=== PATIENT | male | born 1985 | race Caucasian/White ===

== ENCOUNTER 2019-06-28 13:33 | Outpatient (CLI) | payer MEDICARE, SELFPAY ==
[2019-06-28 13:53] LABS: Hematocrit 45.5 % (40.0-54.0); Hemoglobin 15.3 g/dL (14.0-18.0); Mean Corpuscular HGB Conc 33.6 g/dL (32.0-36.0); Mean Corpuscular Hemoglobin 29.4 pg (27.0-31.0); Mean Corpuscular Volume 87.5 fL (78.0-102.0); Mean Platelet Volume 10.4 fl (8.7-11.0); Platelet Count Result 193 K/mm3 (150-420); Red Cell Distribution Width 13.5 % (11.6-14.4); White Blood Count 10.9 K/mm3 (4.8-10.8)
[2019-06-28 14:56] LABS: Alanine Aminotransferase 41 U/L (16-63); Albumin Level 3.6 g/dL (3.4-5.0); Alkaline Phosphatase 78 U/L (46-116); Anion Gap 12.8 mmol/L (7-16); Aspartate Amino Transferase 23 U/L (15-37); Bilirubin,Total 0.3 mg/dL (0.00-1.00); Blood Urea Nitrogen 9 mg/dL (7-18); Calcium 9.2 mg/dL (8.5-10.1); Carbon Dioxide 31 mmol/L (21-32); Chloride 103 mmol/L (98-108); Estimated Glomerular Filt Rate > 60; Glucose 102 mg/dL (70-99); Osmolality Calculated 292 mOsm/kg (285-295); Potassium 4.8 mmol/L (3.5-5.1); Sodium 142 mmol/L (136-145); Total Protein 7.3 g/dL (6.4-8.2)
[2019-06-28 15:16] LABS: Thyroid Stimulating Hormone Reflex 2.83 u/IU/mL (0.36-3.74)
== END 2019-06-28 13:34 | disposition home or self-care (01) ==
LOC: CHSLAB 13:37
PROVIDERS: PCP Family Medicine; Visit Provider Family Medicine
DX: F41.1 Generalized anxiety disorder (principal); E66.3 Overweight
CPT/HCPCS: 36415; 80053; 84443; 85027

== ENCOUNTER 2020-12-31 15:21 | Outpatient (CLI) | payer MEDICARE, MEDICAID, SELFPAY ==
--- NOTE | ~2020-12-31 | XR_ITS ---
EXAMINATION: XR foot LT min 3V DATE: 12/31/2020 15:57 INDICATION: Left foot arch pain. TECHNIQUE: 4 views of left foot were obtained. COMPARISON: None. FINDINGS: Bone alignment is normal. There is an old healed fracture of distal fibula. There is chroni c heterotopic ossification distal to lateral malleolus. There are inga in medial cuneiform and cub oid. There are transverse lucent lines with sclerotic margins in the diaphyses of fourth and fifth me tatarsals with bridging bone. There is chronic deformity of many of the bones. There is cortical irre gularity of the bones at calcaneocuboid joint and talonavicular joint without significant joint space narrowing. There is heterotopic ossification at medial aspect of second proximal interphalangeal gris nt. IMPRESSION: 1. Healing transverse fractures of the diaphyses of fourth and fifth metatarsals. Reviewed, dictated and finalized at location A. AL ASSISTANT MEDICAL ASSISTANT IMPRESSION: 1. Healing transverse fractures of the diaphyses of fourth and fifth metatarsal s.
[2020-12-31 15:51] LABS: Hematocrit 46.9 % (40.0-54.0); Hemoglobin 15.4 g/dL (14.0-18.0); Mean Corpuscular HGB Conc 32.8 g/dL (32.0-36.0); Mean Corpuscular Hemoglobin 28.3 pg (27.0-31.0); Mean Corpuscular Volume 86.1 fL (78.0-102.0); Mean Platelet Volume 10.9 fl (8.7-11.0); Platelet Count Result 184 K/mm3 (150-420); Red Blood Count 5.45 M/mm3 (4.70-6.10); White Blood Count 8.9 K/mm3 (4.8-10.8)
[2020-12-31 16:53] LABS: Alanine Aminotransferase 24 U/L (16-63); Alkaline Phosphatase 79 U/L (46-116); Anion Gap 9 mmol/L (8-16); Aspartate Amino Transferase 13 U/L (15-37); Bilirubin,Total 0.5 mg/dL (0.00-1.00); Blood Urea Nitrogen 11 mg/dL (7-18); Calcium 8.8 mg/dL (8.5-10.1); Carbon Dioxide 29 mmol/L (21-32); Chloride 103 mmol/L (98-108); Estimated Glomerular Filt Rate > 60; Glucose 96 mg/dL (70-99); Osmolality Calculated 291 mOsm/kg (285-295); Potassium 3.9 mmol/L (3.5-5.1); Sodium 141 mmol/L (136-145); Total Protein 7.4 g/dL (6.4-8.2)
== END 2020-12-31 15:22 | disposition home or self-care (01) ==
PROVIDERS: PCP Family Medicine; Visit Provider Family Medicine
DX: M79.672 Pain in left foot (principal); N39.0 Urinary tract infection, site not specified; E66.3 Overweight
CPT/HCPCS: 36415; 73630; 80053; 85027; 87086

== ENCOUNTER 2022-03-07 11:32 | Outpatient (CLI) | payer OTHER, SELFPAY ==
[2022-03-07 11:47] LABS: Hematocrit 39.6 % (40.0-54.0); Hemoglobin 13.4 g/dL (14.0-18.0); Mean Corpuscular HGB Conc 33.8 g/dL (32.0-36.0); Mean Corpuscular Hemoglobin 29.1 pg (27.0-31.0); Mean Corpuscular Volume 85.9 fL (78.0-102.0); Mean Platelet Volume 10.4 fl (8.7-11.0); Platelet Count Result 141 K/mm3 (150-420); Red Blood Count 4.61 M/mm3 (4.70-6.10); Red Cell Distribution Width 14.8 % (11.6-14.4); White Blood Count 6.5 K/mm3 (4.8-10.8)
[2022-03-07 12:14] LABS: Alanine Aminotransferase 158 U/L (16-63); Albumin Level 3.7 g/dL (3.4-5.0); Alkaline Phosphatase 205 U/L (46-116); Anion Gap 7 mmol/L (8-16); Aspartate Amino Transferase 112 U/L (15-37); Bilirubin,Total 0.7 mg/dL (0.00-1.00); Blood Urea Nitrogen 12 mg/dL (7-18); Calcium 8.5 mg/dL (8.5-10.1); Carbon Dioxide 30 mmol/L (21-32); Chloride 104 mmol/L (98-108); Cholesterol 152 mg/dL (0-200); Estimated Glomerular Filt Rate > 60; Glucose 124 mg/dL (70-99); HDL Direct 27 mg/dL (40-60); LDL Cholesterol Calculated 99 mg/dL (<130); Osmolality Calculated 292 mOsm/kg (285-295); Potassium 4.4 mmol/L (3.5-5.1); Sodium 141 mmol/L (136-145); Total Protein 7.5 g/dL (6.4-8.2); Triglycerides 131 mg/dL (0-150)
== END 2022-03-07 11:33 | disposition home or self-care (01) ==
LOC: CHSLAB 11:37
PROVIDERS: PCP Family Medicine; Visit Provider Family Medicine
DX: I10 Essential (primary) hypertension (principal)
CPT/HCPCS: 36415; 80053; 80061; 85027

== ENCOUNTER 2022-03-24 10:11 | Outpatient (CLI) | payer MEDICARE, MEDICAID, SELFPAY ==
--- NOTE | ~2022-03-24 | US_ITS ---
Limited Abdominal Sonogram: Real-time sonographic imaging of the right upper quadrant was performed. Clinical History: Abnormal LFTs Findings: The liver appears echogenic/heterogeneous, with no evidence of mass lesion or bile duct di latation. Main portal vein demonstrates normal direction of flow. The gallbladder is somewhat poorly visualized, with no definite evidence of gallstone or wall thickening. The common bile duct measures 3 mm. The visualized pancreas, aorta, and IVC are unremarkable. Impression: Probable diffuse fatty infiltration of the liver. Reviewed, dictated and finalized at location M. 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
== END 2022-03-24 10:12 | disposition home or self-care (01) ==
PROVIDERS: PCP Family Medicine; Visit Provider Family Medicine
DX: R74.01 Elevation of levels of liver transaminase levels (principal)
CPT/HCPCS: 76705